=== PATIENT | male | born 1975 | race Caucasian/White ===

== ENCOUNTER → 2020-10-30 | Day surgery (SDC) | payer OTHER ==
[~2020-10-30] MED LIST: BREO ELLIPTA 11 EACH INH; LIPITOR40 MG PO; LOSARTAN-HCTZ1 EAC2 PO; VENTOLIN (2.5 MG/3 M INH; VENTOLIN HFA IN18 GM INH
[2020-10-30 09:21] LABS: HCT 52.9 % (42.0-52.0); HGB 18.2 g/dl (13.2-18.0); MCH 32.5 pg (25.0-31.0); MCHC 34.4 g/dL (32.0-36.0); MCV 94.5 fL (78.0-100.0); RBC 5.6 M/uL (4.70-6.00); RDW 12.7 % (11.5-14.0); WBC 15.7 K/uL (4.0-10.5)
[2020-10-30 09:37] LABS: ALBUMIN 4.3 g/dL (3.4-5.0); BILIRUBIN - TOTAL 0.8 mg/dL (0.2-1.0); BUN/CREAT RATIO (CALC) 17.4 RATIO; CREATININE 0.92 mg/dL (0.67-1.17); GLOBULIN (CALCULATION) 3.3 g/dL; POTASSIUM 4.4 mmol/L (3.5-5.1); TOTAL PROTEIN 7.6 g/dL (6.4-8.2)
== END | disposition home or self-care (01) ==
LOC: FAS 07:40
PROVIDERS: Surgery
DX: Z12.11 Encounter for screening for malignant neoplasm of colon (principal); D12.3 Benign neoplasm of transverse colon; J44.9 Chronic obstructive pulmonary disease, unspecified; I10 Essential (primary) hypertension; E78.5 Hyperlipidemia, unspecified; E66.9 Obesity, unspecified; F17.210 Nicotine dependence, cigarettes, uncomplicated; Z20.822 Contact with and (suspected) exposure to COVID-19; Z79.899 Other long term (current) drug therapy; Z86.010 Personal history of colon polyps; Z98.890 Other specified postprocedural states
CPT/HCPCS: 36415; 80053; J1610; J2250; J2704; J7120

== ENCOUNTER 2021-02-04 16:45 | Emergency (ER) | payer OTHER ==
[2021-02-04 18:42] LABS: BASOPHIL 0.6 % (0-2); EOSINOPHIL 2.7 % (0-5); HCT 47.9 % (42.0-52.0); HGB 16.1 g/dl (13.2-18.0); LYMPHOCYTE 16.1 % (15-48); MCH 31.9 pg (25.0-31.0); MCHC 33.6 g/dL (32.0-36.0); MCV 94.9 fL (78.0-100.0); MONOCYTE 5.3 % (0-12); MPV 11.8 fL (6.0-9.5); NEUTROPHIL 74.9 % (41-80); NRBC 0; PLT 164 K/uL (150-400); RBC 5.05 M/uL (4.70-6.00); RDW 12.8 % (11.5-14.0)
[2021-02-04 18:58] LABS: BILIRUBIN - TOTAL 0.3 mg/dL (0.2-1.0); BUN/CREAT RATIO (CALC) 12.4 RATIO; CREATININE 1.05 mg/dL (0.67-1.17); POTASSIUM 4.8 mmol/L (3.5-5.1)
== END 2021-02-04 20:40 | disposition home or self-care (01) ==
LOC: FER 16:45
PROVIDERS: Nurse Practitioner Family
DX: K21.9 Gastro-esophageal reflux disease without esophagitis (principal); I10 Essential (primary) hypertension; J44.9 Chronic obstructive pulmonary disease, unspecified; F17.210 Nicotine dependence, cigarettes, uncomplicated
CPT/HCPCS: 36415; 80053; 83690; 85025; J7030; Q9967